=== PATIENT | female | born 1980 | race Caucasian/White ===

== ENCOUNTER 2021-09-23 11:36 | Emergency (ER) | payer BC ==
[2021-09-23 11:55] VITALS: BP 135/87; PULSE 83; TEMP 98.1; BMI 24.4
[2021-09-23] MEDS ORDERED: predniSONE 20 MG TABLET (UD) PO ONE (12:58)
[2021-09-23] MEDS ORDERED: valACYclovir HCL 1000 MG TABLET PO ONE (12:58)
[2021-09-23] MEDS ORDERED: valACYclovir HCL 500 MG TABLET (FP) ONE (13:03)
[2021-09-23] MEDS ORDERED: predniSONE 10 MG TABLET (UD) ONE (13:03)
[2021-09-23 13:41] LABS: BASO % 0.2 % (0-2.0); EOS % 1.4 % (0-4.5); HEMATOCRIT 38.3 % (32.4-45.2); HEMOGLOBIN 12.9 GM/dL (10.7-15.3); LYMPH % 24.6 % (8-40); MCH 29.4 pg (25.7-33.7); MCHC 33.8 g/dl (32.0-36.0); MEAN PLT VOLUME 7.9 fl (7.5-11.1); MONO % 6.4 % (3.8-10.2); NEUT % 67.4 % (42.8-82.8); PLATELET COUNT 270 10^3/uL (134-434); RDW 13.4 % (11.6-15.6); WHITE BLOOD COUNT 6.4 K/mm3 (4.0-10.0)
[2021-09-23 13:58] LABS: CALCIUM 9.8 mg/dL (8.5-10.1)
[2021-09-23 13:59] LABS: ALBUMIN 4.3 g/dl (3.4-5.0); BLOOD UREA NITROGEN 14.2 mg/dL (7-18)
[2021-09-23 14:02] LABS: CREATININE 0.7 mg/dL (0.55-1.3)
[2021-09-23 14:03] LABS: BILIRUBIN,TOTAL 0.3 mg/dL (0.2-1); TOT PROT 8.1 g/dl (6.4-8.2)
== END 2021-09-23 15:00 | disposition home or self-care (01) ==
LOC: JER 11:36
DX: G51.0 Bell's palsy (principal)
CPT/HCPCS: 36415; 70450-TC; 80053; 85025; 99284-25